=== PATIENT | male | born 1965 | race Caucasian/White ===

== ENCOUNTER 2017-05-23 00:49 | Inpatient (IN) | payer BC ==
[2017-05-23] MEDS ORDERED: Naloxone 0.4 MG/ML Syringe ONE (00:54)
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
[2017-05-23] MEDS ORDERED: fentaNYL 100 MCG/2 ML SDV ONE (02:00)
[2017-05-23] MEDS ORDERED: Lidocaine 1% 20 ML MDV ONE (02:17)
[2017-05-23] MEDS ORDERED: Lidocaine 1% with EPINEPHrine 1:100,000 20 ML MDV ONE ×2 (02:19→02:26)
[2017-05-23] MEDS ORDERED: Naloxone 0.4 MG/ML Syringe IVPUSH ONE (02:48)
[2017-05-23] MEDS ORDERED: Morphine 10 MG/ML Syringe IVPUSH ONE ×2 (02:53→05:17)
[2017-05-23] MEDS ORDERED: Sodium Chloride 0.9% 1,000 ML IV ONE (03:05)
[2017-05-23] MEDS ORDERED: Morphine 10 MG/ML Syringe IV PRN (03:43)
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
--- NOTE | 2017-05-23 04:16 | OR ---
SURGEON: Diallo Franklin MD DATE OF PROCEDURE: 05/23/2017 PREOPERATIVE DIAGNOSIS: Left side pneumothorax. POSTOPERATIVE DIAGNOSIS: Left side pneumothorax. PROCEDURE PROPOSED: Chest tube placement. PROCEDURE PERFORMED: Chest tube placement. COMPLICATIONS: None. FINDINGS: The chest tube was placed to the left side, 32-Hebrew. The tip was steamified. It was then caught to the skin and post chest tube placement, there was still a small pneumothorax apex on the left side. Tube was in good position. No air leak. PROCEDURE: The patient was explained about the postoperative course and the preoperative course. Consent was signed in chart. The patient was then put in the supine position and lying in decubitus position with the pneumothorax side up, nonpneumothorax side down. Belcourt was assessed to make sure that the chest tube entrance site is at least at the level of the nipple. The area was prepped and draped in a sterile fashion. The area was infiltrated with anesthetic agent one rib beside the entrance site on the skin incision. The entrance site was then opened up by use of hemostat and chest tube was inserted and jackson of air was heard, chest tube was steamified. Chest tube was then secured and I ensured the chest tube was the last hose in the pleural cavity and chest tube was anchored to the skin by using silk stitches. With Vaseline gauze, appropriate dressing was placed. A chest x-ray was pending. The patient tolerated the procedure well. There were no intraoperative complications and Dr. Franklin was present through the whole procedure. Just before surgery, a timeout was called. The patient was identified and procedure identified and procedure started. As always, thank you for the kind referral. SELWYN PALENCIA /[id number]
[2017-05-23] MEDS ORDERED: Iopamidol 612 MG/ML 100 ML Bottle IVPUSH ONE (04:51)
[2017-05-23] MEDS: Lactated Ringers 1,000 ML IV SCH ×3 (05:58→22:20)
[2017-05-23] MEDS ORDERED: Morphine 2 MG/ML Syringe IVPUSH PRN (09:26)
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
--- NOTE | 2017-05-23 11:21 | CR ---
EXAM DATE: 05/23/17 PATIENT'S AGE: 52 Patient: NADINE RODRIGUEZ Facility: [place], [place] Site . Site : 1965 Study: XRay Chest [id number]/27/2017 3:10:41 AM Ordering Physician: Haris Barnes Final Report: Indication: Chest tube placement Technique: Chest 1 view Comparison: May 23, 2017 at 1:10 a.m. Findings/Impression: Interval placement of left-sided chest tube with tip projecting at the left lung apex. There is a small residual left pneumothorax without mediastinal shift. Persistent patchy opacity at the left lung base may reflect contusion or atelectasis. Left 2nd rib fracture is identified. There are likely additional left-sided rib fractures. Chest CT may be useful for further evaluation. Dictated by Fiona Myers MD @ May 23 2017 3:19AM (Electronic Signature) Report Signed by Proxy. [facility]
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
[2017-05-23] MEDS: Ketorolac 15 MG/ML SDV IVPUSH SCH ×2 (11:31→20:11)
[2017-05-23] MEDS: Docusate Sodium 100 MG Cap PO SCH ×2 (11:31→21:12)
[2017-05-23] MEDS: Cyclobenzaprine 10 MG Tab PO SCH ×2 (11:31→21:12)
--- NOTE | 2017-05-23 12:04 | CR ---
EXAMINATION: Portable chest radiograph. HISTORY: Chest tube. FINDINGS: The trachea is midline. The cardiomediastinal silhouette is grossly stable. There is a left-sided ch est tube noted without significant residual pneumothorax. Multiple left-sided rib fractures are pres ent. Left basilar atelectasis is noted. IMPRESSION: Left-sided chest tube without an appreciable pneumothorax.
[2017-05-23] MEDS: Morphine 2 MG/ML Syringe IVPUSH PRN (16:42)
[2017-05-24] MEDS: Ketorolac 15 MG/ML SDV IVPUSH SCH ×3 (03:52→18:33)
[2017-05-24] MEDS: Lactated Ringers 1,000 ML IV SCH (06:23)
[2017-05-24] MEDS: Docusate Sodium 100 MG Cap PO SCH ×2 (09:30→21:12)
[2017-05-24] MEDS: Cyclobenzaprine 10 MG Tab PO SCH (09:30)
[2017-05-24] MEDS: Heparin Sodium 5,000 Units/ML Vial SUBCUT SCH ×2 (09:30→21:12)
--- NOTE | 2017-05-24 10:16 | CR ---
EXAMINATION: Portable chest radiograph. HISTORY: Pneumothorax. FINDINGS: The trachea is midline. The cardiomediastinal silhouette is within normal limits. There is a left-si ded chest tube noted without an appreciable pneumothorax. Improving left basilar atelectasis. Multiple minimally displaced left-sided rib fractures again noted. IMPRESSION: Left-sided chest tube without an appreciable pneumothorax.
[2017-05-24] MEDS: Morphine 2 MG/ML Syringe IVPUSH PRN (12:02)
--- NOTE | 2017-05-24 13:43 | CR ---
EXAMINATION: Portable chest radiograph. HISTORY: Chest tube removal. FINDINGS: The trachea is midline. The heart is normal in size. There is a left-sided chest tube noted. There i s mild left basilar atelectasis. Again noted are multiple minimally displaced rib fractures. Osseous structures otherwise appear unremarkable. IMPRESSION: Left-sided chest tube with left basilar atelectasis and no significant residual pneumothorax.
[2017-05-24] MEDS: Bisacodyl 10 MG Supp RECTAL ONE ×2 (16:44→16:48)
[2017-05-24] MEDS: HYDROmorphone 2 MG Tab PO PRN (21:30)
[2017-05-24] MEDS: Cyclobenzaprine 10 MG Tab PO PRN (21:30)
[2017-05-25] MEDS: Ketorolac 15 MG/ML SDV IVPUSH SCH ×3 (03:44→19:19)
[2017-05-25] MEDS: Heparin Sodium 5,000 Units/ML Vial SUBCUT SCH ×2 (08:48→20:58)
[2017-05-25] MEDS: Docusate Sodium 100 MG Cap PO SCH (08:48)
[2017-05-25] MEDS: Cyclobenzaprine 10 MG Tab PO PRN ×3 (09:30→21:26)
--- NOTE | 2017-05-25 09:41 | PCM.SURGPN ---
- General Info Date of Service: 05/24/17 POD#: 1 Functional Status: Reports: pain controlled - Review of Systems General: Reports: No Symptoms Pulmonary: Reports: no symptoms Cardiovascular: Reports: No Symptoms - Patient Data Vitals - most recent: Last Vital Signs Temp 99.4 F 05/25/17 08:00 Pulse 95 05/23/17 04:10 Resp 30 H 05/25/17 09:00 BP 132/88 05/25/17 09:00 Pulse Ox 91 L 05/25/17 09:00 Weight - most recent: 201 lb 4.513 oz I&O - last 24 hours: Intake & Output 05/24/17 05/25/17 05/25/17 22:59 06:59 14:59 Intake Total 950 250 Output Total 830 310 Balance 120 -60 Med Orders - Current: Current Medications Cyclobenzaprine HCl (Flexeril) 10 mg PO BID PRN PRN Reason: Spasms Last Admin: 05/24/17 21:30 Dose: 10 mg Docusate Sodium (Colace) 100 mg PO BID [facility] Last Admin: 05/25/17 08:48 Dose: 100 mg Heparin Sodium (Porcine) (Heparin Sodium) 5,000 units SUBCUT Q12HR EDWARD Last Admin: 05/25/17 08:48 Dose: 5,000 units Hydromorphone HCl (Dilaudid) 1 mg PO Q8H PRN PRN Reason: Pain Last Admin: 05/24/17 21:30 Dose: 1 mg Ketorolac Tromethamine (Toradol) 30 mg IVPUSH Q8H [facility] Last Admin: 05/25/17 03:44 Dose: 30 mg Discontinued Medications Bisacodyl (Dulcolax) 10 mg RECTAL ONETIME ONE Stop: 05/24/17 16:01 Last Admin: 05/24/17 16:48 Dose: Not Given Cyclobenzaprine HCl (Flexeril) 10 mg PO BID [facility] Last Admin: 05/24/17 09:30 Dose: 10 mg Fentanyl (Sublimaze) Confirm Administered Dose 100 mcg .ROUTE .STK-MED ONE Stop: 05/23/17 02:01 Last Admin: 05/23/17 02:51 Dose: Not Given Sodium Chloride (Normal Saline) 1,000 mls @ 999 mls/hr IV .Bolus ONE Stop: 05/23/17 04:05 Last Admin: 05/23/17 03:00 Dose: 999 mls/hr Lactated Ringer's (Ringers, Lactated) 1,000 mls @ 125 mls/hr IV ASDIRECTED EDWARD Last Admin: 05/24/17 06:23 Dose: 125 mls/hr Iopamidol (Isovue-300 (61%)) 100 ml IVPUSH ONETIME ONE Stop: 05/23/17 04:52 Last Admin: 05/23/17 04:52 Dose: 100 ml Lidocaine HCl (Xylocaine 1%) Confirm Administered Dose 20 ml .ROUTE .STK-MED ONE Stop: 05/23/17 02:18 Last Admin: 05/23/17 02:51 Dose: Not Given Lidocaine/Epinephrine (Xylocaine 1% With Epinephrine 1:100,000) Confirm Administered Dose 20 ml .ROUTE .STK-MED ONE Stop: 05/23/17 02:20 Last Admin: 05/23/17 02:45 Dose: 20 ml Lidocaine/Epinephrine (Xylocaine 1% With Epinephrine 1:100,000) Confirm Administered Dose 20 ml .ROUTE .STK-MED ONE Stop: 05/23/17 02:27 Last Admin: 05/23/17 02:45 Dose: 20 ml Morphine Sulfate (Morphine) 8 mg IVPUSH ONETIME ONE Stop: 05/23/17 02:54 Last Admin: 05/23/17 02:54 Dose: 8 mg Morphine Sulfate (Morphine) 2 mg IV .STK-MED PRN PRN Reason: Pain Morphine Sulfate (Morphine) 2 mg IVPUSH ONETIME ONE Stop: 05/23/17 05:18 Last Admin: 05/23/17 05:53 Dose: 2 mg Morphine Sulfate (Morphine) 2 mg IVPUSH Q4H PRN PRN Reason: Pain Last Admin: 05/23/17 09:35 Dose: 2 mg Morphine Sulfate (Morphine) 2 mg IVPUSH Q6H PRN PRN Reason: Pain Last Admin: 05/24/17 12:02 Dose: 2 mg Naloxone HCl (Narcan) Confirm Administered Dose 0.8 mg .ROUTE .STK-MED ONE Stop: 05/23/17 00:55 Last Admin: 05/23/17 00:54 Dose: 0.4 mg Naloxone HCl (Narcan) 0.4 mg IVPUSH ONETIME ONE Stop: 05/23/17 02:49 Last Admin: 05/23/17 02:52 Dose: Not Given - Exam Lungs: Decreased breath sounds Abdomen: soft Psy/Mental Status: alert, normal mood (chest tube output 100, no air leak, ) - Problem List Review Problem List Initiated/Reviewed/Updated: Yes - My Orders Last 24 Hours: Active Orders 24 hr Category Date Time Status Communication Order [RC] PER UNIT ROUTINE Care 05/25/17 09:08 Active Up ad Kelly [RC] ASDIRECTED Care 05/24/17 08:54 Active Full Liquid Diet [DIET] Diet 05/24/17 Lunch Active Regular Diet [DIET] Diet 05/25/17 Lunch Ordered CXR [Chest 1V Frontal] [CR] DAILY Exams 05/26/17 07:00 Stop Req Chest 1V Frontal [CR] Stat Exams 05/25/17 05:00 Taken Cyclobenzaprine [Flexeril] Med 05/24/17 15:37 Active 10 mg PO BID PRN HYDROmorphone [Dilaudid] Med 05/24/17 15:38 Active 1 mg PO Q8H PRN Heparin Sodium Med 05/24/17 09:00 Active 5,000 units SUBCUT Q12HR Medication Orders Cyclobenzaprine HCl (Flexeril) 10 mg PO BID PRN PRN Reason: Spasms Last Admin: 05/24/17 21:30 Dose: 10 mg Docusate Sodium (Colace) 100 mg PO BID [facility] Last Admin: 05/25/17 08:48 Dose: 100 mg Admin: 05/24/17 21:12 Dose: 100 mg Admin: 05/24/17 09:30 Dose: 100 mg Admin: 05/23/17 21:12 Dose: 100 mg Admin: 05/23/17 11:31 Dose: 100 mg Heparin Sodium (Porcine) (Heparin Sodium) 5,000 units SUBCUT Q12HR [facility] Last Admin: 05/25/17 08:48 Dose: 5,000 units Admin: 05/24/17 21:12 Dose: 5,000 units Admin: 05/24/17 09:30 Dose: 5,000 units Hydromorphone HCl (Dilaudid) 1 mg PO Q8H PRN PRN Reason: Pain Last Admin: 05/24/17 21:30 Dose: 1 mg Ketorolac Tromethamine (Toradol) 30 mg IVPUSH Q8H [facility] Last Admin: 05/25/17 03:44 Dose: 30 mg Admin: 05/24/17 18:33 Dose: 30 mg Admin: 05/24/17 11:03 Dose: 30 mg Admin: 05/24/17 03:52 Dose: 30 mg Admin: 05/23/17 20:11 Dose: 30 mg Admin: 05/23/17 11:31 Dose: 30 mg - Assessment Assessment (Free Text/Narrative):: doing well post chest tube placement for flail chest, stay in icu for intermittent desat; chest tube output minimal; no air leak; start sq 5000 q12, cxr, no ptx, chest tube to water seal, possible remove chest tube tomorrow - Plan Plan (Free Text/Narrative):: doing well post chest tube placement for flail chest, stay in icu for intermittent desat; chest tube output minimal; no air leak; start sq 5000 q12, cxr, no ptx, chest tube to water seal, possible remove chest tube tomorrow
--- NOTE | 2017-05-25 09:48 | PCM.SURGPN ---
- General Info Date of Service: 05/25/17 POD#: 2 - Review of Systems General: Reports: No Symptoms HEENT: Reports: no symptoms Pulmonary: Reports: no symptoms Cardiovascular: Reports: No Symptoms Gastrointestinal: Reports: No symptoms - Patient Data Vitals - most recent: Last Vital Signs Temp 99.4 F 05/25/17 08:00 Pulse 95 05/23/17 04:10 Resp 30 H 05/25/17 09:00 BP 132/88 05/25/17 09:00 Pulse Ox 91 L 05/25/17 09:00 Weight - most recent: 201 lb 4.513 oz I&O - last 24 hours: Intake & Output 05/24/17 05/25/17 05/25/17 22:59 06:59 14:59 Intake Total 950 250 Output Total 830 310 Balance 120 -60 Med Orders - Current: Current Medications Cyclobenzaprine HCl (Flexeril) 10 mg PO BID PRN PRN Reason: Spasms Last Admin: 05/25/17 09:30 Dose: 10 mg Docusate Sodium (Colace) 100 mg PO BID [facility] Last Admin: 05/25/17 08:48 Dose: 100 mg Heparin Sodium (Porcine) (Heparin Sodium) 5,000 units SUBCUT Q12HR [facility] Last Admin: 05/25/17 08:48 Dose: 5,000 units Hydromorphone HCl (Dilaudid) 1 mg PO Q8H PRN PRN Reason: Pain Last Admin: 05/24/17 21:30 Dose: 1 mg Ketorolac Tromethamine (Toradol) 30 mg IVPUSH Q8H [facility] Last Admin: 05/25/17 03:44 Dose: 30 mg Discontinued Medications Bisacodyl (Dulcolax) 10 mg RECTAL ONETIME ONE Stop: 05/24/17 16:01 Last Admin: 05/24/17 16:48 Dose: Not Given Cyclobenzaprine HCl (Flexeril) 10 mg PO BID [facility] Last Admin: 05/24/17 09:30 Dose: 10 mg Fentanyl (Sublimaze) Confirm Administered Dose 100 mcg .ROUTE .STK-MED ONE Stop: 05/23/17 02:01 Last Admin: 05/23/17 02:51 Dose: Not Given Sodium Chloride (Normal Saline) 1,000 mls @ 999 mls/hr IV .Bolus ONE Stop: 05/23/17 04:05 Last Admin: 05/23/17 03:00 Dose: 999 mls/hr Lactated Ringer's (Ringers, Lactated) 1,000 mls @ 125 mls/hr IV ASDIRECTED [facility] Last Admin: 05/24/17 06:23 Dose: 125 mls/hr Iopamidol (Isovue-300 (61%)) 100 ml IVPUSH ONETIME ONE Stop: 05/23/17 04:52 Last Admin: 05/23/17 04:52 Dose: 100 ml Lidocaine HCl (Xylocaine 1%) Confirm Administered Dose 20 ml .ROUTE .STK-MED ONE Stop: 05/23/17 02:18 Last Admin: 05/23/17 02:51 Dose: Not Given Lidocaine/Epinephrine (Xylocaine 1% With Epinephrine 1:100,000) Confirm Administered Dose 20 ml .ROUTE .STK-MED ONE Stop: 05/23/17 02:20 Last Admin: 05/23/17 02:45 Dose: 20 ml Lidocaine/Epinephrine (Xylocaine 1% With Epinephrine 1:100,000) Confirm Administered Dose 20 ml .ROUTE .STK-MED ONE Stop: 05/23/17 02:27 Last Admin: 05/23/17 02:45 Dose: 20 ml Morphine Sulfate (Morphine) 8 mg IVPUSH ONETIME ONE Stop: 05/23/17 02:54 Last Admin: 05/23/17 02:54 Dose: 8 mg Morphine Sulfate (Morphine) 2 mg IV .STK-MED PRN PRN Reason: Pain Morphine Sulfate (Morphine) 2 mg IVPUSH ONETIME ONE Stop: 05/23/17 05:18 Last Admin: 05/23/17 05:53 Dose: 2 mg Morphine Sulfate (Morphine) 2 mg IVPUSH Q4H PRN PRN Reason: Pain Last Admin: 05/23/17 09:35 Dose: 2 mg Morphine Sulfate (Morphine) 2 mg IVPUSH Q6H PRN PRN Reason: Pain Last Admin: 05/24/17 12:02 Dose: 2 mg Naloxone HCl (Narcan) Confirm Administered Dose 0.8 mg .ROUTE .STK-MED ONE Stop: 05/23/17 00:55 Last Admin: 05/23/17 00:54 Dose: 0.4 mg Naloxone HCl (Narcan) 0.4 mg IVPUSH ONETIME ONE Stop: 05/23/17 02:49 Last Admin: 05/23/17 02:52 Dose: Not Given - Exam Wound/Incisions: dressing dry and intact Neck: supple (shallow breathing because of pain; no crepitance and trach is midline) Lungs: Clear to auscultation, Decreased breath sounds Abdomen: soft - Problem List Review Problem List Initiated/Reviewed/Updated: Yes - My Orders Last 24 Hours: Active Orders 24 hr Category Date Time Status Communication Order [RC] PER UNIT ROUTINE Care 05/25/17 09:08 Active Up ad Kelly [RC] ASDIRECTED Care 05/24/17 08:54 Active Full Liquid Diet [DIET] Diet 05/24/17 Lunch Active Regular Diet [DIET] Diet 05/25/17 Lunch Ordered CXR [Chest 1V Frontal] [CR] DAILY Exams 05/26/17 07:00 Stop Req Chest 1V Frontal [CR] Stat Exams 05/25/17 05:00 Taken Cyclobenzaprine [Flexeril] Med 05/24/17 15:37 Active 10 mg PO BID PRN HYDROmorphone [Dilaudid] Med 05/24/17 15:38 Active 1 mg PO Q8H PRN Heparin Sodium Med 05/24/17 09:00 Active 5,000 units SUBCUT Q12HR Medication Orders Cyclobenzaprine HCl (Flexeril) 10 mg PO BID PRN PRN Reason: Spasms Last Admin: 05/24/17 21:30 Dose: 10 mg Docusate Sodium (Colace) 100 mg PO BID [facility] Last Admin: 05/25/17 08:48 Dose: 100 mg Admin: 05/24/17 21:12 Dose: 100 mg Admin: 05/24/17 09:30 Dose: 100 mg Admin: 05/23/17 21:12 Dose: 100 mg Admin: 05/23/17 11:31 Dose: 100 mg Heparin Sodium (Porcine) (Heparin Sodium) 5,000 units SUBCUT Q12HR [facility] Last Admin: 05/25/17 08:48 Dose: 5,000 units Admin: 05/24/17 21:12 Dose: 5,000 units Admin: 05/24/17 09:30 Dose: 5,000 units Hydromorphone HCl (Dilaudid) 1 mg PO Q8H PRN PRN Reason: Pain Last Admin: 05/24/17 21:30 Dose: 1 mg Ketorolac Tromethamine (Toradol) 30 mg IVPUSH Q8H [facility] Last Admin: 05/25/17 03:44 Dose: 30 mg Admin: 05/24/17 18:33 Dose: 30 mg Admin: 05/24/17 11:03 Dose: 30 mg Admin: 05/24/17 03:52 Dose: 30 mg Admin: 05/23/17 20:11 Dose: 30 mg Admin: 05/23/17 11:31 Dose: 30 mg - Plan Plan (Free Text/Narrative):: cxr showed tiny apical ptx; resume suction, cxr 6 hr later; pt is doing fine clinically, pain is better controlled; pt failed water seal, would suction for another 24 hr before attempt another water seal; and keep on NC O2 till chest tube ready to be pull; explained to pt I am heading out of town; his care will be tendered to oncall surgeon. pt voiced understanding; if dced, will fu w in office 1 - 2 wks
--- NOTE | 2017-05-25 09:53 | CR ---
EXAM DATE: 05/23/17 PATIENT'S AGE: 52 Patient: NADINE RODRIGUEZ Facility: [place], [place] Site . Site : 1965 Study: XRay Chest [id number]/29/2017 5:39:52 AM Ordering Physician: Noemi Landrum Final Report: Indication: Pneumothorax Technique: Chest 1 view Comparison: Comparison:May 23, 2017. Findings/Impression: Stable cardiomediastinal silhouette. A left-sided chest tube tip projects at the lung apex. There is a tiny left apical pneumothorax. Improved aeration of the left lung base. Minimal linear atelectasis at the right lung base. Multiple left-sided rib fractures again noted. Dictated by Fiona Myers MD @ May 25 2017 5:43AM (Electronic Signature) Report Signed by Proxy. RG
--- NOTE | 2017-05-25 13:04 | CR ---
EXAMINATION: Portable chest radiograph. HISTORY: Pneumothorax. FINDINGS: The trachea is midline. The cardiomediastinal silhouette is stable. There is a left-sided chest tube noted without a visualized pneumothorax. Trace left basilar atelectasis again noted. Multiple minimally displaced left rib fractures, stable. IMPRESSION: Left-sided chest tube without a visualized pneumothorax.
--- NOTE | 2017-05-25 13:28 | PCM.SN ---
- Free Text/Narrative Note: pt is sleeping comfortably, on NC o2 with good sat; no crepitancy, trach midline , and B breadth sound, shallow breadth; chest tube on suction; repeat cxr at noon, no ptx; a&P; doing well, continue chestube suction
[2017-05-25] MEDS: HYDROmorphone 2 MG Tab PO PRN (21:15)
[2017-05-26] MEDS: Ketorolac 15 MG/ML SDV IVPUSH SCH ×2 (03:27→11:39)
[2017-05-26] MEDS: HYDROmorphone 2 MG Tab PO PRN (05:44)
[2017-05-26] MEDS: Heparin Sodium 5,000 Units/ML Vial SUBCUT SCH ×2 (08:54→21:27)
[2017-05-26] MEDS: Docusate Sodium 100 MG Cap PO SCH (08:55)
[2017-05-26] MEDS ORDERED: Cyclobenzaprine 10 MG Tab PO PRN (13:07)
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
[2017-05-26] MEDS ORDERED: Ketorolac 10 MG Tab PO SCH (13:15)
--- NOTE | 2017-05-26 13:43 | CR ---
EXAM DATE: 05/23/17 PATIENT'S AGE: 52 Patient: NADINE RODRIGUEZ Facility: [place], [place] Site . Site : 1965 Study: XRay Chest [id number]/30/2017 6:02:37 AM Ordering Physician: Noemi Landrum Final Report: INDICATION: Followup pneumothorax. Comparison: Chest radiograph May 25, 2017; CT chest May 23, 2017. Technique: Portable AP chest. Findings: Chest drainage catheter in the left thorax. No pneumothorax identified at this time. Atelectatic changes both lung bases. Normal size cardiac silhouette. Multiple rib fractures involving the left rib cage. Impression: 1. No pneumothorax identified at this time. 2. Multiple rib fractures left rib cage. 3. Chest drainage catheter in the left apex. Dictated by Yo Arauz MD @ May 26 2017 6:06AM (Electronic Signature) Report Signed by Proxy. RG
[2017-05-26] MEDS: Ketorolac 10 MG Tab PO SCH ×2 (16:37→23:30)
[2017-05-26] MEDS: Acetaminophen/oxyCODONE 325-5 MG Tab PO PRN (21:25)
[2017-05-27] MEDS: Ketorolac 10 MG Tab PO SCH ×2 (06:12→12:35)
[2017-05-27] MEDS: Docusate Sodium 100 MG Cap PO SCH (08:28)
[2017-05-27] MEDS: Heparin Sodium 5,000 Units/ML Vial SUBCUT SCH (08:28)
[2017-05-27] MEDS: Acetaminophen/oxyCODONE 325-5 MG Tab PO PRN (08:41)
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
[2017-05-27 12:41] VITALS: BP 126/84
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
--- NOTE | 2017-05-29 14:11 | CR ---
EXAM DATE: 05/23/17 PATIENT'S AGE: 52 Patient: NADINE RODRIGUEZ Facility: [place], [place] Site . Site : 1965 Study: XRay Chest [id number]/1/2017 7:36:10 AM Ordering Physician: Noemi Landrum Final Report: INDICATION: Follow-up left pneumothorax. COMPARISON: 05/26/2017. FINDINGS: A portable AP upright view of the chest was obtained. The cardiac silhouette is stable. There is stable left chest tube. The pulmonary vasculature is within normal limits. There is no significant pneumothorax seen. There is atelectasis in the right lung base. The lungs otherwise are clear. IMPRESSION: 1. Stable left chest tube. 2. No significant pneumothorax seen. 3. Stable atelectasis right lung base. Dictated by Gonzalo Kraft MD @ 05/27/2017 7:47:45 AM Dictated by: Gonzalo Kraft MD @ 05/27/2017 07:48:00 (Electronic Signature) Report Signed by Proxy. [facility]
--- NOTE | 2017-05-29 14:31 | CR ---
EXAM DATE: 05/23/17 PATIENT'S AGE: 52 Patient: NADINE RDORIGUEZ Facility: [place], [place] Site . Site : 1965 Study: XRay Chest [id number]/1/2017 12:12:28 PM Ordering Physician: Noemi Landrum Final Report: HISTORY: Left chest tube removal. Technique: Chest PA and lateral. Comparison: 05/27/2017, 0726 hours. Findings: The left chest tube has been removed. No pneumothorax is seen. Atelectasis is present in the left lung base. There is a decrease in the right basilar atelectasis since the previous exam. The heart size and pulmonary vessels are within normal limits. Left rib fractures are again noted. Impression: 1. No evidence of pneumothorax following left chest tube removal. 2. Improved aeration of the right lung base since earlier on the same date. Dictated by Fred Farah MD @ May 27 2017 12:27PM (Electronic Signature) Report Signed by Proxy. RG
== END 2017-05-27 15:10 | disposition home or self-care (01) | DRG 135 ==
LOC: MW.ED 00:49 → MW.ICU 03:05 → MW.MS 05-26 14:04
PROVIDERS: ADMIT Surgery; ATTEND Surgery
PROC: 0W9B00Z Drainage of Left Pleural Cavity with Drainage Device, Open Approach (ICD-10-PCS; principal; 2017-05-23)
DX: S27.0XXA Traumatic pneumothorax, initial encounter (principal); S22.42XA Multiple fractures of ribs, left side, initial encounter for closed fracture; V29.9XXA Motorcycle rider (driver) (passenger) injured in unspecified traffic accident, initial encounter; F17.200 Nicotine dependence, unspecified, uncomplicated; Z79.899 Other long term (current) drug therapy
CPT/HCPCS: 36415; 70450; 70450-26; 71010; 71010-26; 71020; 71020-26; 71260; 71260-26; 72125; 72125-26; 74177; 74177-26; 80053; 80305; 82550; 84484; 85025; 93005; 96361; 96374; 96375; 99285; 99285-25; A9270-GY; G0390; G0480; J1644; J1885; J2270; J7040; J7120; Q9967

== ENCOUNTER 2017-06-06 10:49 | Emergency (ER) | payer BC ==
[2017-06-06] MEDS ORDERED: Sodium Chloride 0.9% 10 ML Syringe FLUSH PRN (11:12)
[2017-06-06] MEDS ORDERED: Sodium Chloride 0.9% 2.5 ML Syringe FLUSH PRN (11:12)
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
[2017-06-06 11:47] LABS: CHLORIDE,CL 101 mmol/L (98-110); SODIUM,NA 136 mmol/L (136-146)
--- NOTE | 2017-06-06 12:02 | CR ---
EXAMINATION: Two-view chest (PA and Lateral views). HISTORY: Decreased lung sounds. FINDINGS: The trachea is midline. The cardiomediastinal silhouette is within normal limits. Mild left basilar atelectasis and/or infiltrate, however improving. Left pleural thickening is noted with adjacent rib fractures again noted. No definite pneumothorax. Remaining Osseous structures appear unremarkable. IMPRESSION: Unchanged left-sided rib fractures and pleural thickening and left basilar scarring without a visual ized pneumothorax.
[2017-06-06 12:18] VITALS: BP 135/93
== END 2017-06-06 12:18 | disposition home or self-care (01) ==
LOC: MW.ED 10:49
DX: L29.9 Pruritus, unspecified (principal); R68.2 Dry mouth, unspecified; T40.2X5A Adverse effect of other opioids, initial encounter; Z79.899 Other long term (current) drug therapy
CPT/HCPCS: 36415; 71020; 71020-26; 80053; 84484; 85025; 93005; 99283